=== PATIENT | male | born 1975 | race Caucasian/White ===

== ENCOUNTER 2025-03-16 22:00 | Emergency (ER) | payer MEDICAID ==
[~2025-03-16] VITALS: Ht 175.3 cm; Wt 89.0 kg
[2025-03-16 23:16] LABS: BASOPHILS 0.5 % (0.2-1.2); EOSINOPHILS 3.5 % (0.8-7.0); LYMPHOCYTES 38.2 % (21.8-53.1); MCH 30.5 PG (25.7-32.2); MCHC 35.4 g/dL (32.3-36.5); MCV 86.3 fL (79.0-92.2); MONOCYTES 6.1 % (5.3-12.2); NEUTROPHILS 51.5 % (34.0-67.9); RBC 4.75 M/uL (4.63-6.08)
[2025-03-16 23:51] LABS: ALT (SGPT) 24.0 U/L (14-59); AST (SGOT) 14.0 U/L (15-37); GLOMERULAR FILTRATION RATE,EST 109.0 mL/min (>60); PROTEIN, TOTAL 6.5 g/dL (6.4-8.2); UREA NITROGEN 20.0 mg/dL (7-18)
[2025-03-17] MEDS ORDERED: LISINOPRIL10 MG PO (01:06)
[2025-03-17 01:31] VITALS: BP 146/99
--- NOTE | 2025-03-17 22:47 | EKG ---
[facility] [address] [facility] [place] [address] Signed Normal sinus rhythm Minimal voltage criteria for LVH, may be normal variant ( R in aVL ) Septal infarct , age undetermined Abnormal ECG No previous ECGs available Confirmed by Juan Milian MD () on 03/17/2025 10:47:06 PM Electronically Signed By: JUAN MILIAN MD 03/17/25 2247 PATIENT NAME: LYLE JANE Electrocardiogram DATE OF : 71 PHYSICIAN: JUAN MILIAN MD REPORT #: [id number] REPORT IS CONFIDENTIAL AND NOT TO BE RELEASED WITHOUT AUTHORIZATION
== END 2025-03-17 01:33 | disposition home or self-care (01) ==
LOC: ED 22:00
PROVIDERS: Family Medicine
DX: I10 Essential (primary) hypertension (principal); Z88.1 Allergy status to other antibiotic agents
CPT/HCPCS: 36415; 71045; 80053; 83735; 84484; 85025; 93005; 93010; 99285-25